=== PATIENT | female | born 1980 | race Caucasian/White ===

== ENCOUNTER 2021-05-09 11:41 | Outpatient (CLI) | payer OTHER | END 2021-05-09 11:42 | disposition home or self-care (01) | LOC: CSHMAMMO 11:41 | PROVIDERS: ATTEND Obstetrics & Gynecology | DX: Z12.31 Encounter for screening mammogram for malignant neoplasm of breast (principal) | CPT/HCPCS: 77063; 77067 ==

== ENCOUNTER 2022-10-10 12:38 | Outpatient (CLI) | payer OTHER | END 2022-10-10 12:39 | disposition home or self-care (01) | LOC: CSHMAMMO 12:38 | PROVIDERS: ATTEND Obstetrics & Gynecology | DX: Z12.31 Encounter for screening mammogram for malignant neoplasm of breast (principal) | CPT/HCPCS: 77063; 77067 ==